=== PATIENT | male | born 1940 | race Caucasian/White ===

== ENCOUNTER 2016-08-03 10:45 | Emergency (ER) | payer MEDICARE ==
[~2016-08-03] VITALS: Ht 175.3 cm; Wt 90.0 kg
[2016-08-03 10:49] VITALS: BP 130/79; PULSE 88; RESP 12; TEMP 99.2; O2SAT 95
--- NOTE | 2016-08-03 16:19 | PD ---
HPI Chief Complaint: Cold / Flu Symptoms Time Seen by Provider: 16:12 Travel History International Travel<30 days: No Contact w/Intl Traveler<30days: No Traveled to known affect area: No History of Present Illness HPI 76 year old male presents to the emergency department for evaluation of cold symptoms for 5 days. Patient states he had laprascopic abdominal surgery for hernia repair and adhesion removal 3.5 weeks ago by his surgeon in [facility]. Patient states he took care of his two grandsons 1.5 weeks ago that were diagnosed with influenza. He states that 5 days ago, he started with fever , body aches, cough. He states he has chest pain with coughing only. He has no chest pain at rest. He reports a history of hyperlipidemia, HTN, depression. He denies any history of [place]. Patient denies any nausea/vomiting. No diarrhea/constipation. PFSH Social History Alcohol Use: No Tobacco Use: No Substance Use: No Allergies-Medications (Allergen,Severity, Reaction): Coded Allergies: No Known Allergies (Unverified , 08/03/16) Reported Meds & Prescriptions Reported Meds & Active Scripts Active Reported Fish Oil + D3 (Fish Oil-Cholecalciferol) 1,200-1,000 Mg-Unit Cap 1 Cap PO DAILY Aspirin 81 (Aspirin) 81 Mg Tabdr 81 Mg PO DAILY Centrum Silver (Multiple Vitamins W/ Minerals) 1 Tab 1 Tab PO DAILY Atorvastatin (Atorvastatin Calcium) 20 Mg Tab 20 Mg PO HS Ramipril 10 Mg Cap 10 Mg PO DAILY Cymbalta DR (Duloxetine HCl) 30 Mg Capdr 30 Mg PO DAILY Review of Systems Except as stated in HPI: all other systems reviewed are Neg Physical Exam Narrative GENERAL: Well developed, well nourished male patient, ambulatory and in no acute distress. Afebrile. SKIN: Warm and dry. Patient has several well healing incisions to the abdomen without erythema or drainage. HEAD: Normocephalic. Atraumatic. EYES: No scleral icterus. No injection or drainage. NECK: Supple, trachea midline. No JVD or lymphadenopathy. CARDIOVASCULAR: Regular rate and rhythm without murmurs, gallops, or rubs. RESPIRATORY: Breath sounds equal bilaterally. No accessory muscle use. Lung sounds clear to auscultation. GASTROINTESTINAL: Abdomen soft, non-tender, nondistended. MUSCULOSKELETAL: No cyanosis, or edema. BACK: Nontender without obvious deformity. No CVA tenderness. Data Data Last Documented VS Vital Signs Date Time Temp Pulse Resp B/P Pulse Ox O2 Delivery O2 Flow Rate FiO2 08/03/16 18:30 67 18 136/79 97 Room Air 08/03/16 10:49 99.2 Orders Complete Blood Count With Diff (08/03/16 16:06) Basic Metabolic Panel (Bmp) (08/03/16 16:06) B-Type Natriuretic Peptide (08/03/16 16:06) Magnesium (Mg) (08/03/16 16:06) Ckmb (Isoenzyme) Profile (08/03/16 16:06) Troponin I (08/03/16 16:06) Influenzae A/B Antigen (08/03/16 16:06) Electrocardiogram (08/03/16 16:06) Chest, Pa & Lat (08/03/16 16:06) Labs Laboratory Tests Test 08/03/16 16:30 White Blood Count 6.3 TH/MM3 Red Blood Count 4.40 MIL/MM3 Hemoglobin 14.0 GM/DL Hematocrit 39.7 % Mean Corpuscular Volume 90.1 FL Mean Corpuscular Hemoglobin 31.7 PG Mean Corpuscular Hemoglobin 35.2 % Concent Red Cell Distribution Width 12.8 % Platelet Count 183 TH/MM3 Mean Platelet Volume 7.8 FL Neutrophils (%) (Auto) 61.1 % Lymphocytes (%) (Auto) 28.7 % Monocytes (%) (Auto) 7.5 % Eosinophils (%) (Auto) 2.1 % Basophils (%) (Auto) 0.6 % Neutrophils # (Auto) 3.9 TH/MM3 Lymphocytes # (Auto) 1.8 TH/MM3 Monocytes # (Auto) 0.5 TH/MM3 Eosinophils # (Auto) 0.1 TH/MM3 Basophils # (Auto) 0.0 TH/MM3 CBC Comment DIFF FINAL Differential Comment Sodium Level 138 MEQ/L Potassium Level 3.7 MEQ/L Chloride Level 104 MEQ/L Carbon Dioxide Level 27.0 MEQ/L Anion Gap 7 MEQ/L Blood Urea Nitrogen 9 MG/DL Creatinine 0.84 MG/DL Estimat Glomerular Filtration 89 ML/MIN Rate Random Glucose 98 MG/DL Calcium Level 8.6 MG/DL Magnesium Level 2.1 MG/DL Total Creatine Kinase 49 U/L Troponin I LESS THAN 0.02 NG/ML B-Type Natriuretic Peptide 18 PG/ML MDM Medical Decision Making Medical Screen Exam Complete: Yes Emergency Medical Condition: Yes Medical Record Reviewed: Yes Differential Diagnosis influenza vs. pneumonia vs. bronchitis vs. URI Narrative Course 76 year old male presents to the emergency department for evaluation of flu- like symptoms for 5 days. Patient appears well on exam. EKG, CBC, BMP, BNP, CK , troponin, chest x-ray are ordered and pending. Marlin Garcia Aug 03, 2016 16:19
--- NOTE | 2016-08-03 16:37 | RADRPT ---
EXAM DATE/TIME: 08/03/2016 16:19 [place] COMPARISON: No previous studies available for comparison. INDICATIONS : Short of breath. MEDICAL HISTORY : None. SURGICAL HISTORY : abdominal surgery for scar tissue. ENCOUNTER: Initial ACUITY: 3 weeks PAIN SCORE: 0/10 LOCATION: Bilateral chest FINDINGS: PA and lateral views of the chest demonstrate the lungs to be symmetrically aerated without evidence of mass, infiltrate or effusion. The cardiomediastinal contours are unremarkable. Osseous structure s are intact. Costicartilage calcification is present. CONCLUSION: No acute disease. Ramos Romero MD on August 03, 2016 at 16:35 Board Certified Radiologist. This report was verified electronically.
[2016-08-03 16:48] LABS: AUTOMATED NEUTROPHIL # 3.9 TH/MM3 (1.8-7.7); BASOPHIL % 0.6 % (0.0-2.0); EOSINOPHIL # 0.1 TH/MM3 (0-0.4); EOSINOPHIL % 2.1 % (0.0-4.0); HEMATOCRIT 39.7 % (39.0-51.0); HEMO FLAGS DIFF FINAL; LYMPH % 28.7 % (9.0-44.0); LYMPHOCYTE # 1.8 TH/MM3 (1.0-4.8); MEAN CELL VOLUME 90.1 FL (80.0-100.0); MEAN CORPUSCULAR HEMOGLOBIN 31.7 PG (27.0-34.0); MEAN CORPUSCULAR HGB CONC 35.2 % (32.0-36.0); MONO % 7.5 % (0.0-8.0); NEUT % 61.1 % (16.0-70.0); PLATELET COUNT 183 TH/MM3 (150-450); RED CELL DISTRIBUTION WIDTH 12.8 % (11.6-17.2); WHITE BLOOD COUNT 6.3 TH/MM3 (4.0-11.0)
[2016-08-03 17:10] LABS: ANION GAP 7 MEQ/L (5-15); BLOOD UREA NITROGEN 9 MG/DL (7-18); CHLORIDE 104 MEQ/L (98-107); GLOMERULAR FILTRATION RATE 89 ML/MIN (>89); MAGNESIUM 2.1 MG/DL (1.5-2.5); POTASSIUM 3.7 MEQ/L (3.5-5.1); SODIUM (NA) 138 MEQ/L (136-145)
[2016-08-03 17:37] LABS: CREATINE KINASE 49 U/L (39-308)
[2016-08-03 18:30] VITALS: BP 136/79; PULSE 67; RESP 18; O2SAT 97
[2016-08-03] MEDS ORDERED: ATOR20TA15 PO (18:30)
[2016-08-03] MEDS ORDERED: FISHCAP4 PO (18:30)
[2016-08-03] MEDS ORDERED: ASPI-110 PO (18:30)
[2016-08-03] MEDS ORDERED: CYMB30CA PO (18:30)
[2016-08-03] MEDS ORDERED: CENTTAB PO (18:30)
[2016-08-03] MEDS ORDERED: RAMI10CA PO (18:30)
--- NOTE | 2016-08-03 18:46 | PD ---
Physical Exam Time Seen by Provider: 18:35 Data Data Last Documented VS Vital Signs Date Time Temp Pulse Resp B/P Pulse Ox O2 Delivery O2 Flow Rate FiO2 08/03/16 18:30 67 18 136/79 97 Room Air 08/03/16 10:49 99.2 Orders Complete Blood Count With Diff (08/03/16 16:06) Basic Metabolic Panel (Bmp) (08/03/16 16:06) B-Type Natriuretic Peptide (08/03/16 16:06) Magnesium (Mg) (08/03/16 16:06) Ckmb (Isoenzyme) Profile (08/03/16 16:06) Troponin I (08/03/16 16:06) Influenzae A/B Antigen (08/03/16 16:06) Electrocardiogram (08/03/16 16:06) Chest, Pa & Lat (08/03/16 16:06) Benzonatate (Tessalon) (08/03/16 20:15) Labs Laboratory Tests Test 08/03/16 16:30 White Blood Count 6.3 TH/MM3 Red Blood Count 4.40 MIL/MM3 Hemoglobin 14.0 GM/DL Hematocrit 39.7 % Mean Corpuscular Volume 90.1 FL Mean Corpuscular Hemoglobin 31.7 PG Mean Corpuscular Hemoglobin 35.2 % Concent Red Cell Distribution Width 12.8 % Platelet Count 183 TH/MM3 Mean Platelet Volume 7.8 FL Neutrophils (%) (Auto) 61.1 % Lymphocytes (%) (Auto) 28.7 % Monocytes (%) (Auto) 7.5 % Eosinophils (%) (Auto) 2.1 % Basophils (%) (Auto) 0.6 % Neutrophils # (Auto) 3.9 TH/MM3 Lymphocytes # (Auto) 1.8 TH/MM3 Monocytes # (Auto) 0.5 TH/MM3 Eosinophils # (Auto) 0.1 TH/MM3 Basophils # (Auto) 0.0 TH/MM3 CBC Comment DIFF FINAL Differential Comment Sodium Level 138 MEQ/L Potassium Level 3.7 MEQ/L Chloride Level 104 MEQ/L Carbon Dioxide Level 27.0 MEQ/L Anion Gap 7 MEQ/L Blood Urea Nitrogen 9 MG/DL Creatinine 0.84 MG/DL Estimat Glomerular Filtration 89 ML/MIN Rate Random Glucose 98 MG/DL Calcium Level 8.6 MG/DL Magnesium Level 2.1 MG/DL Total Creatine Kinase 49 U/L Troponin I LESS THAN 0.02 NG/ML B-Type Natriuretic Peptide 18 PG/ML [facility] Medical Record Reviewed: Yes Supervised Visit with MARLYS: No Interpretation(s) EKG normal sinus rhythm with left axis deviation Chest x-ray clear CBC unremarkable CMP unremarkable, negative troponin and CK BNP negative Positive influenza Narrative Course Please see previous providers notes. In summary this patient has had cough for 5 days. The cough is dry but feels wet, worse at night, causes some pain in his chest only when he coughs. He has no pain when he is not coughing. Denies shortness of breath, abdominal pain, nausea or vomiting, diarrhea or constipation, rash, flank pain, dysuria, testicular or scrotal pain. The patient does note that 3 weeks ago he had laparoscopic hernia and adhesion surgery in [facility]. He denies any abdominal pain. He also notes that 2 weeks ago he had his grandchildren staying with him and they're diagnosed with influenza, placed on Tamiflu. She does note that 3 days ago had a fever with a temperature of 101, no fever since then. He otherwise feels well. Discussed with Dr. Ocampo who agrees with plan of care. Influenza is positive. The patient's other lab is very reassuring. Given the duration of the patient's symptoms is not a candidate for Tamiflu. He is being discharged with prescription for Tessalon. Discussed that the patient should return if he develops new or worsening symptoms. He is stable for discharge. Diagnosis Primary Impression: Influenza A Additional Instruction: Tessalon for cough. Stay well hydrated and well-nourished. Return for worsening symptoms. Med/Other Pt SpecificInfo: Prescription(s) given Scripts Benzonatate (Tessalon Perles)100 Mg Tli170 Mg PO TID PRN (COUGH) #30 CAP Ref 0 Prov:Jefferson Ocampo MD 08/03/16 Disposition: 01 DISCHARGE HOME Condition: Stable Delfin Finley Aug 03, 2016 18:46
[2016-08-03] MEDS ORDERED: BENZ100 PO (20:08)
[2016-08-03] MEDS ORDERED: BENZONATATE 100 MG CAP PO ONE (20:15)
[2016-08-03 20:32] VITALS: BP 143/72
--- NOTE | 2016-08-04 08:48 | EKG ---
Date Performed: 08/03/2016 Time Performed: 16:28:23 PTAGE: 76 years EKG: Sinus rhythm MARKED LEFT AXIS DEVIATION ABNORMAL ECG NO PREVIOUS TRACING DOCTOR: Jose Rueda Interpretating Date/Time 08/04/2016 08:42:59
== END 2016-08-03 20:41 | disposition home or self-care (01) ==
LOC: NEPE 10:45
DX: J09.X2 Influenza due to identified novel influenza A virus with other respiratory manifestations (principal); R07.9 Chest pain, unspecified; R05 Cough; R50.9 Fever, unspecified; I10 Essential (primary) hypertension; R94.31 Abnormal electrocardiogram [ECG] [EKG]; E78.5 Hyperlipidemia, unspecified
CPT/HCPCS: 71020; 80048; 82550; 83735; 83880; 84484; 85025; 87804; 93005